=== PATIENT | female | born 1950 ===

== ENCOUNTER 2021-05-04 05:32 | Day surgery (SDC) | payer OTHER ==
[~2021-05-04 05:32] MED LIST: AMBIEN10 MG PO; METFORMIN HCL500 M3 PO; SYNTHROID125 MCG PO
[2021-05-04] MEDS ORDERED: ULTRACET PO (10:10)
[2021-05-04] MEDS ORDERED: MACROBID 100 M100 MG PO (10:10)
== END 2021-05-04 10:50 | disposition home or self-care (01) ==
LOC: CIR.AMB 05:32
PROVIDERS: ATTEND Obstetrics & Gynecology Gynecology
DX: N81.3 Complete uterovaginal prolapse (principal)